=== PATIENT | female | born 1955 ===

== ENCOUNTER 2024-12-25 09:43 | Outpatient (CLI) | payer OTHER | END 2024-12-25 09:45 | disposition home or self-care (01) | LOC: SONOGRAMA 09:43 | PROVIDERS: ATTEND Pathology Anatomic Pathology | DX: D44.0 Neoplasm of uncertain behavior of thyroid gland (principal); D34 Benign neoplasm of thyroid gland; E06.3 Autoimmune thyroiditis; E04.1 Nontoxic single thyroid nodule ==